=== PATIENT | male | born 1985 | race Caucasian/White ===

== ENCOUNTER 2023-09-05 20:22 | Emergency (ER) | payer SELFPAY ==
[~2023-09-05] VITALS: Ht 188 cm; Wt 90.0 kg
[2023-09-05 20:28] VITALS: O2SAT 99
[2023-09-05] MEDS ORDERED: BUSP10TA4 MT (21:25)
[2023-09-05] MEDS ORDERED: OLAN15TA3 MT (21:25)
[2023-09-05 22:00] VITALS: BP 154/91; PULSE 67; RESP 15; TEMP 97.7
== END 2023-09-05 22:06 | disposition home or self-care (01) ==
LOC: ER 20:22
DX: F20.9 Schizophrenia, unspecified (principal); Z76.0 Encounter for issue of repeat prescription
CPT/HCPCS: 99283